=== PATIENT | female | born 1955 | race Caucasian/White ===

== ENCOUNTER → 2019-09-19 | Outpatient (CLI) | payer MEDICAID ==
[~2019-09-19] MED LIST: ATOR10TA69 PO; ENAL20TA PO; TRAM100T28 PO
== END | disposition home or self-care (01) ==
LOC: LAB 07:48
PROVIDERS: ATTEND Obstetrics & Gynecology
DX: Z01.818 Encounter for other preprocedural examination (principal); Z11.59 Encounter for screening for other viral diseases
CPT/HCPCS: U0003-CS

== ENCOUNTER 2019-09-23 06:39 | Day surgery (SDC) | payer MEDICAID ==
[~2019-09-23] VITALS: Ht 167.6 cm; Wt 70.8 kg
[~2019-09-23 06:39] MED LIST changes: -ATOR10TA69 PO; -ENAL20TA PO; +LACTATED RINGERS 1,000 ML IV SCH; -TRAM100T28 PO
[2019-09-23 07:52] LABS: BASOPHILS % 0.5 % (0.0-2.0); EOSINOPHILS % 1.6 % (0.0-5.0); HEMATOCRIT. 37.7 % (36.0-48.0); HEMOGLOBIN. 13.1 g/dL (12.0-16.0); LYMPHOCYTES % 28.9 % (20.0-50.0); MEAN CORPUSCULAR HEMOGLOBIN 31.8 pg (28.0-32.0); MEAN CORPUSCULAR VOLUME 91.3 fL (81.0-99.0); MEAN PLATELET VOLUME 7.9 fl (7.4-10.4); MONOCYTES % 7.6 % (2.0-8.0); NEUTROPHILS % 61.4 % (40.0-76.0); PLATELET 213 x1000/uL (130-400); RED BLOOD CELL COUNT 4.13 mill/uL (4.2-5.4); RED CELL DISTRIBUTION WIDTH 13.6 % (11.6-14.6)
[2019-09-23 08:01] LABS: PARTIAL THROMBOPLASTIN TIME 26.5 sec (23.4-31.0); PROTHROMBIN TIME 10.9 sec (9.6-11.0)
[2019-09-23 08:02] LABS: CHLORIDE 107 mEq/L (98-107)
[2019-09-23 08:25] LABS: CLARITY URINE CLEAR (CLEAR); COLOR URINE YELLOW (YELLOW); KETONES URINE NEGATIVE (NEGATIVE); LEUKOCYTE ESTERASE URINE 2+ (NEGATIVE); NITRITE URINE POSITIVE (NEGATIVE); OCCULT BLOOD URINE NEGATIVE (NEGATIVE); PH URINE 5.5 (4.5-8.0); PROTEIN URINE NEGATIVE (NEGATIVE); SPECIFIC GRAVITY URINE 1.018 (1.005-1.030); UROBILINOGEN URINE 0.2 E.U./dL (0.2-1.0)
[2019-09-23] MEDS ORDERED: SKIN ADHESIVE 0.7 GM EA TOP ONE ×2 (11:36→12:16)
[2019-09-23] MEDS ORDERED: VASOPRESSIN 20 UNIT/ML 1ML ONE ×2 (11:36→11:41)
[2019-09-23] MEDS ORDERED: BUPIVACAINE HCL/PF 0.5% (5MG/ML) 10ML ONE (11:36)
[2019-09-23] MEDS ORDERED: SODIUM CHLORIDE 0.9% 10ML VIAL ONE ×2 (11:36→12:07)
[2019-09-23] MEDS ORDERED: BUPIVACAINE HCL 0.5% (5MG/ML) 50ML ONE (11:41)
[2019-09-23] MEDS ORDERED: PROPOFOL 200MG/20ML VIAL IV ONE (11:48)
[2019-09-23] MEDS ORDERED: FENTANYL CITRATE/PF 50MCG/ML 2ML VIAL ONE (11:48)
[2019-09-23] MEDS ORDERED: SUCCINYLCHOLINE CHLORIDE 200MG/10ML IV ONE (11:49)
[2019-09-23] MEDS ORDERED: LIDOCAINE HCL 1% 20ML VIAL (Pyxis) INJ ONE (11:49)
[2019-09-23] MEDS ORDERED: ROCURONIUM BROMIDE 10MG/ML VIAL 5ML IV ONE (11:49)
[2019-09-23] MEDS ORDERED: MIDAZOLAM HCL 2 MG/2 ML VIAL ONE (11:49)
[2019-09-23] MEDS ORDERED: ATOR10TA69 PO (12:05)
[2019-09-23] MEDS ORDERED: ENAL20TA PO (12:05)
[2019-09-23] MEDS ORDERED: TRAM100T28 PO (12:05)
[2019-09-23] MEDS ORDERED: KETOROLAC 30MG/ML VIAL ONE (12:07)
[2019-09-23] MEDS ORDERED: DEXAMETHASONE 4MG/ML 1ML VIAL ONE (12:07)
[2019-09-23] MEDS ORDERED: CEFAZOLIN SODIUM 1000MG/VIAL ONE (12:07)
[2019-09-23] MEDS ORDERED: ONDANSETRON HCL 4MG/2ML INJ ONE (12:07)
[2019-09-23] MEDS ORDERED: HYDRALAZINE 20MG/ML VIAL ONE (13:24)
[2019-09-23] MEDS ORDERED: HYDROMORPHONE HCL/PF 2MG/ML CPJ IV PRN (14:00)
[2019-09-23 14:12] VITALS: BP 125/73
== END 2019-09-23 15:30 | disposition home or self-care (01) ==
LOC: OR 06:39 → EDUNIT# 07:30 → OR 15:30
PROVIDERS: ATTEND Obstetrics & Gynecology
DX: N83.201 Unspecified ovarian cyst, right side (principal); M19.90 Unspecified osteoarthritis, unspecified site; I10 Essential (primary) hypertension; E78.00 Pure hypercholesterolemia, unspecified; Z79.899 Other long term (current) drug therapy; Z98.890 Other specified postprocedural states
CPT/HCPCS: 36415; 58662; 80048; 81003; 85025; 85610; 85730; 86850; 86900; 86901; 87086; 88108; 88305; 93005; J0330; J0360; J0690; J1100; J1170; J1885; J2250; J2405; J2704; J3010; J3490; S2900